=== PATIENT | female | born 1970 | race Caucasian/White ===

== ENCOUNTER 2017-08-24 17:39 | Inpatient (IN) | payer MEDICAID ==
[~2017-08-24] VITALS: Ht 160 cm; Wt 50.9 kg
[2017-08-24] MEDS ORDERED: MAGNESIUM SULFATE 2 GM, MVI, ADULT NO.1 WITH VIT K 10 ML, THIAMINE HCL 100 MG, FOLIC AC... IV ONE ×5 (19:00)
[2017-08-24] MEDS ORDERED: ONDANSETRON HCL 4 MG/2 ML VIAL IVP ONE (19:30)
[2017-08-24] MEDS ORDERED: MORPHINE SULFATE 4 MG/ML SYRINGE IVP ONE (19:30)
[2017-08-24] MEDS ORDERED: NITROGLYCERIN 2% (1 GM=INCH) PACKET TP ONE (20:45)
[2017-08-24] MEDS ORDERED: ASPIRIN 81 MG CHEWABLE TABLET PO ONE (20:45)
[2017-08-24 21:18] LABS: ANION GAP 9 mmol/L (8-16); CALCIUM, TOTAL 8.1 mg/dL (8.8-10.5); CARBON DIOXIDE 28 mmol/L (22-29); CHLORIDE 104 mmol/L (98-107); CREATININE 0.67 mg/dL (0.60-1.30); GLOMERULAR FILTR. RATE CALC > 60 mL/min (>60); GLUCOSE,RANDOM 100 mg/dL (70-110); POTASSIUM 3.4 mmol/L (3.5-5.1); SODIUM SERUM 141 mmol/L (136-145); UREA NITROGEN, BLOOD 10 mg/dL (7-18)
[2017-08-24 21:21] LABS: PROTHROMBIN TIME 10.6 SEC (9.4-11.6)
[2017-08-24 21:24] LABS: ALANINE AMINOTRANSFERASE 105 U/L (12-78); ALBUMIN 3.6 g/dL (3.4-5.0); ALKALINE PHOSPHATASE 95 U/L (46-116); ASPARTATE AMINOTRANSFERASE 126 U/L (15-37); BILIRUBIN,TOTAL 0.3 mg/dL (0.1-1.0); TOTAL PROTEIN, SERUM 7.5 g/dL (6.4-8.2)
[2017-08-24 21:25] LABS: BASOPHILS % (AUTO) 0.5 % (0.0-2.0); EOSINOPHILS % (AUTO) 0.9 % (1.0-6.0); HEMATOCRIT 41.5 % (36-46); HEMOGLOBIN 14.5 g/dL (12.0-16.0); LYMPHOCYTES % (AUTO) 42.6 % (22.0-44.0); MEAN CORPUSCULAR HGB CONC 34.9 G/dL (31.0-37.0); MEAN CORPUSCULAR VOLUME 100 fL (80-100); MONOCYTES # (AUTO) 0.4 K/uL (0.1-1.0); MONOCYTES % (AUTO) 8.3 % (2.0-9.0); NEUTROPHILS # (AUTO) 2.2 K/uL (1.8-7.7); NEUTROPHILS % (AUTO) 47.7 % (40.0-70.0); PLATELET COUNT (AUTO) 226 K/uL (150-450); RED BLOOD CELL COUNT(AUTO) 4.14 MIL/uL (4.00-5.20); RED CELL DISTRIBUTION WIDTH 15.2 % (11.5-14.5)
[2017-08-24 21:50] LABS: B-TYPE NATRIURETIC PEPTIDE 18 pg/mL (0-100)
[2017-08-24] MEDS ORDERED: LORazepam 2 MG/ML VIAL IVP PRN (22:15)
[2017-08-24] MEDS ORDERED: MAGNESIUM OXIDE 400 MG TABLET PO PRN (22:15)
[2017-08-24] MEDS ORDERED: OxyCODONE HCL/ACETAMINOPHEN 5-325 MG TABLET PO PRN (22:15)
[2017-08-24] MEDS ORDERED: MAGNESIUM SULFATE 2 GM in DEXTROSE 5%-WATER 50 ML IV PRN (22:15)
[2017-08-24] MEDS ORDERED: POTASSIUM CHLORIDE 20 MEQ ER TABLET PO PRN (22:15)
[2017-08-24] MEDS ORDERED: MAGNESIUM HYDROXIDE SUSPENSION 30 ML UDCUP PO PRN (22:15)
[2017-08-24] MEDS ORDERED: ACETAMINOPHEN 325 MG TABLET PO PRN (22:15)
[2017-08-24] MEDS ORDERED: POTASSIUM CHL 10 MEQ/WATER 50 ML IV PRN (22:15)
[2017-08-24] MEDS ORDERED: MAGNESIUM SULFATE 4 GM/WATER 100 ML IV PRN (22:15)
[2017-08-24] MEDS: ChlordiazePOXIDE HCL 25 MG CAPSULE PO SCH (23:19)
[2017-08-25] VITALS (8 sets, daily range): BP systolic 122–191; BP diastolic 78–143
[2017-08-25] MEDS: MORPHINE SULFATE 2 MG/ML SYRINGE IVP PRN ×5 (02:19→20:00)
[2017-08-25] MEDS: NICOTINE 21 MG/24 HOUR PATCH TD SCH ×2 (05:38→09:00)
[2017-08-25] MEDS ORDERED: INFLUENZA VIRUS VACCINE QVS 2017-18 (3YR+)/PF 60 MCG/0.5 ML SYRINGE IM ONE (07:45)
[2017-08-25] MEDS ORDERED: PNEUMOCOCCAL VACCINE POLYVALENT 0.5 ML VIAL [PPSV23] IM ONE (07:45)
[2017-08-25] MEDS: DOCUSATE SODIUM 100 MG CAPSULE PO SCH ×2 (08:34→19:58)
[2017-08-25] MEDS: ASPIRIN 81 MG CHEWABLE TABLET PO SCH (08:35)
[2017-08-25] MEDS: MULTIVITAMINS WITH MINERALS, THERAPEUTIC TABLET PO SCH (08:35)
[2017-08-25] MEDS: ChlordiazePOXIDE HCL 25 MG CAPSULE PO SCH ×3 (08:35→23:51)
[2017-08-25] MEDS: PANTOPRAZOLE SODIUM 40 MG DR TABLET PO SCH (08:36)
[2017-08-25] MEDS ORDERED: METO25 PO (10:14)
[2017-08-25] MEDS ORDERED: LISI-661 PO (10:14)
[2017-08-25] MEDS ORDERED: CloNIDine HCL 0.1 MG TABLET PO ONE (10:15)
[2017-08-25] MEDS ORDERED: CloNIDine HCL 0.1 MG TABLET PO PRN (10:45)
[2017-08-25] MEDS: ONDANSETRON HCL 4 MG/2 ML VIAL IVP PRN (11:35)
[2017-08-25] MEDS: METOPROLOL TARTRATE 25 MG TABLET PO SCH (12:30)
[2017-08-25] MEDS: LISINOPRIL 10 MG TABLET PO SCH (12:30)
[2017-08-26 03:24] VITALS: BP 136/85
[2017-08-26] MEDS: MORPHINE SULFATE 2 MG/ML SYRINGE IVP PRN ×3 (03:25→12:23)
[2017-08-26 07:17] VITALS: BP 105/72
[2017-08-26] MEDS: NICOTINE 21 MG/24 HOUR PATCH TD SCH (07:30)
[2017-08-26] MEDS: LISINOPRIL 10 MG TABLET PO SCH (07:32)
[2017-08-26] MEDS: ASPIRIN 81 MG CHEWABLE TABLET PO SCH (07:32)
[2017-08-26] MEDS: ChlordiazePOXIDE HCL 25 MG CAPSULE PO SCH ×2 (07:32→16:00)
[2017-08-26] MEDS: DOCUSATE SODIUM 100 MG CAPSULE PO SCH (07:32)
[2017-08-26] MEDS: METOPROLOL TARTRATE 25 MG TABLET PO SCH (07:32)
[2017-08-26] MEDS: MULTIVITAMINS WITH MINERALS, THERAPEUTIC TABLET PO SCH (07:32)
[2017-08-26] MEDS: PANTOPRAZOLE SODIUM 40 MG DR TABLET PO SCH (07:32)
[2017-08-26] MEDS: ONDANSETRON HCL 4 MG/2 ML VIAL IVP PRN (07:33)
[2017-08-26 07:55] LABS: BASOPHILS % (AUTO) 0.7 % (0.0-2.0); EOSINOPHILS % (AUTO) 2.1 % (1.0-6.0); HEMATOCRIT 41.1 % (36-46); HEMOGLOBIN 14.2 g/dL (12.0-16.0); LYMPHOCYTES # (AUTO) 1.4 K/uL (1.0-4.8); LYMPHOCYTES % (AUTO) 33.4 % (22.0-44.0); MEAN CORPUSCULAR HEMOGLOBIN 34.8 pg (26.0-34.0); MEAN CORPUSCULAR HGB CONC 34.5 G/dL (31.0-37.0); MEAN CORPUSCULAR VOLUME 101 fL (80-100); MONOCYTES # (AUTO) 0.7 K/uL (0.1-1.0); MONOCYTES % (AUTO) 15.8 % (2.0-9.0); PLATELET COUNT (AUTO) 211 K/uL (150-450); RED BLOOD CELL COUNT(AUTO) 4.08 MIL/uL (4.00-5.20); RED CELL DISTRIBUTION WIDTH 14.5 % (11.5-14.5)
[2017-08-26 08:21] LABS: ALANINE AMINOTRANSFERASE 88 U/L (12-78); ALBUMIN 3.2 g/dL (3.4-5.0); ALKALINE PHOSPHATASE 86 U/L (46-116); ANION GAP 5 mmol/L (8-16); ASPARTATE AMINOTRANSFERASE 80 U/L (15-37); BILIRUBIN,TOTAL 0.6 mg/dL (0.1-1.0); CALCIUM, TOTAL 9.2 mg/dL (8.8-10.5); CARBON DIOXIDE 28 mmol/L (22-29); CHLORIDE 99 mmol/L (98-107); CREATININE 0.83 mg/dL (0.60-1.30); GLOMERULAR FILTR. RATE CALC > 60 mL/min (>60); GLUCOSE,RANDOM 102 mg/dL (70-110); POTASSIUM 4.4 mmol/L (3.5-5.1); SODIUM SERUM 132 mmol/L (136-145); TOTAL PROTEIN, SERUM 6.9 g/dL (6.4-8.2); UREA NITROGEN, BLOOD 13 mg/dL (7-18)
[2017-08-26] MEDS ORDERED: METOPROLOL TARTRATE 25 MG TABLET PO SCH (09:00)
[2017-08-26] MEDS ORDERED: LISINOPRIL 10 MG TABLET PO SCH (09:00)
[2017-08-26 09:11] LABS: PLATELET MORPHOLOGY COMMENT NORMAL
[2017-08-26 10:57] VITALS: BP 108/76
[2017-08-26] MEDS ORDERED: LIB5 PO (15:03)
[2017-08-26] MEDS ORDERED: OMEP20 PO (15:03)
[2017-08-26 15:33] VITALS: BP 125/72
== END 2017-08-26 15:50 | disposition home or self-care (01) | DRG 241 ==
LOC: EMS 17:41 → AHU 08-25 00:47 → 5N 08-25 10:45
PROVIDERS: ADMIT Internal Medicine; ATTEND Internal Medicine
DX: K29.70 Gastritis, unspecified, without bleeding (principal); I11.0 Hypertensive heart disease with heart failure; I50.9 Heart failure, unspecified; R56.9 Unspecified convulsions; K21.9 Gastro-esophageal reflux disease without esophagitis; F10.239 Alcohol dependence with withdrawal, unspecified; E87.6 Hypokalemia; I25.10 Atherosclerotic heart disease of native coronary artery without angina pectoris; J44.9 Chronic obstructive pulmonary disease, unspecified; F31.9 Bipolar disorder, unspecified; F17.200 Nicotine dependence, unspecified, uncomplicated; I45.10 Unspecified right bundle-branch block; Y90.8 Blood alcohol level of 240 mg/100 ml or more; Z95.1 Presence of aortocoronary bypass graft; Z91.19 Patient's noncompliance with other medical treatment and regimen; Z83.3 Family history of diabetes mellitus; Z82.49 Family history of ischemic heart disease and other diseases of the circulatory system; Z87.440 Personal history of urinary (tract) infections; Z59.0 Homelessness
CPT/HCPCS: 83735; 90471; 93005; 93306; 96365; 96366; 96375; 99285; 99406; G0480; J2060; J2270; J2405; J3411; J3475; J3490; J7030

== ENCOUNTER 2019-09-12 11:42 | Inpatient (IN) | payer MEDICAID ==
[~2019-09-12] VITALS: Ht 160 cm; Wt 55.0 kg
[~2019-09-12 11:42] MED LIST: LIB5 PO; LISI-661 PO; METO25 PO; OMEP20 PO
[2019-09-12] MEDS ORDERED: SODIUM CHLORIDE 0.9% 1,000 ML IV ONE (12:30)
[2019-09-12] MEDS ORDERED: ONDANSETRON HCL 4 MG/2 ML VIAL IVP ONE (12:30)
[2019-09-12] MEDS ORDERED: DIAZEPAM 5 MG/ML 2 ML SYRINGE IVP ONE (12:30)
[2019-09-12 13:17] LABS: BASOPHILS % (AUTO) 1.2 % (0.0-2.0); EOSINOPHILS % (AUTO) 0.9 % (1.0-6.0); HEMATOCRIT 39.4 % (36-46); LYMPHOCYTES % (AUTO) 22.8 % (22.0-44.0); MEAN CORPUSCULAR HEMOGLOBIN 28.5 pg (26.0-34.0); MEAN CORPUSCULAR HGB CONC 32.9 G/dL (31.0-37.0); MEAN CORPUSCULAR VOLUME 87 fL (80-100); MONOCYTES # (AUTO) 0.6 K/uL (0.1-1.0); MONOCYTES % (AUTO) 6.5 % (2.0-9.0); NEUTROPHILS # (AUTO) 5.9 K/uL (1.8-7.7); NEUTROPHILS % (AUTO) 68.6 % (40.0-70.0); PLATELET COUNT (AUTO) 415 K/uL (150-450); RED BLOOD CELL COUNT(AUTO) 4.55 MIL/uL (4.00-5.20); RED CELL DISTRIBUTION WIDTH 17.5 % (11.5-14.5)
[2019-09-12 13:29] LABS: ANION GAP 8 mmol/L (8-16); CALCIUM, TOTAL 9.9 mg/dL (8.8-10.5); CARBON DIOXIDE 28 mmol/L (22-29); CHLORIDE 98 mmol/L (98-107); CREATININE 0.71 mg/dL (0.60-1.30); GLOMERULAR FILTR. RATE CALC > 60 mL/min (>60); GLUCOSE,RANDOM 100 mg/dL (70-110); POTASSIUM 3.5 mmol/L (3.5-5.1); SODIUM SERUM 134 mmol/L (136-145); UREA NITROGEN, BLOOD 19 mg/dL (7-18)
[2019-09-12 13:35] LABS: ALANINE AMINOTRANSFERASE 36 U/L (12-78); ALBUMIN 3.8 g/dL (3.4-5.0); ALKALINE PHOSPHATASE 129 U/L (46-116); ASPARTATE AMINOTRANSFERASE 37 U/L (15-37); BILIRUBIN,TOTAL 0.5 mg/dL (0.1-1.0); TOTAL PROTEIN, SERUM 8.9 g/dL (6.4-8.2)
[2019-09-12] MEDS ORDERED: ONDANSETRON HCL 4 MG/2 ML VIAL IVP PRN ×2 (15:00→23:00)
[2019-09-12] MEDS ORDERED: ACETAMINOPHEN 325 MG TABLET PO PRN ×2 (15:00→23:00)
[2019-09-12] MEDS ORDERED: DIAZEPAM 5 MG/ML 2 ML SYRINGE IVP PRN (15:00)
[2019-09-12 18:43] VITALS: BP 150/102
[2019-09-12 19:35] VITALS: BP 155/98
[2019-09-12] MEDS ORDERED: ChlordiazePOXIDE HCL 25 MG CAPSULE PO PRN (23:00)
[2019-09-12] MEDS ORDERED: 0.9% SODIUM CHLORIDE 10 ML SYRINGE IVP PRN (23:00)
[2019-09-12] MEDS ORDERED: MAGNESIUM HYDROXIDE SUSPENSION 30 ML UDCUP PO PRN (23:00)
[2019-09-12 23:20] VITALS: BP 161/106
[2019-09-12] MEDS: DOCUSATE SODIUM 100 MG CAPSULE PO SCH (23:36)
[2019-09-12] MEDS: SODIUM CHLORIDE 0.9% 1,000 ML IV SCH (23:37)
[2019-09-13 04:18] VITALS: BP 168/103
[2019-09-13] MEDS ORDERED: ChlordiazePOXIDE HCL 25 MG CAPSULE PO PRN (07:00)
[2019-09-13] MEDS: ChlordiazePOXIDE HCL 25 MG CAPSULE PO SCH ×4 (08:24→19:48)
[2019-09-13] MEDS: DOCUSATE SODIUM 100 MG CAPSULE PO SCH ×2 (08:24→19:48)
[2019-09-13] MEDS: OMEPRAZOLE 20 MG CAPSULE PO SCH (08:25)
[2019-09-13] MEDS: FOLIC ACID 1 MG TABLET PO SCH (08:25)
[2019-09-13] MEDS: LISINOPRIL 10 MG TABLET PO SCH (08:25)
[2019-09-13] MEDS: MULTIVITAMINS, THERAPEUTIC TABLET PO SCH (08:25)
[2019-09-13] MEDS: THIAMINE HCL 100 MG TABLET PO SCH (08:25)
[2019-09-13] MEDS: METOPROLOL TARTRATE 25 MG TABLET PO SCH (08:25)
[2019-09-13 09:50] LABS: BASOPHILS % (AUTO) 0.9 % (0.0-2.0); EOSINOPHILS % (AUTO) 3.4 % (1.0-6.0); HEMATOCRIT 38.4 % (36-46); HEMOGLOBIN 12.9 g/dL (12.0-16.0); LYMPHOCYTES # (AUTO) 1.6 K/uL (1.0-4.8); LYMPHOCYTES % (AUTO) 25.6 % (22.0-44.0); MEAN CORPUSCULAR HEMOGLOBIN 29.2 pg (26.0-34.0); MEAN CORPUSCULAR HGB CONC 33.6 G/dL (31.0-37.0); MEAN CORPUSCULAR VOLUME 87 fL (80-100); MONOCYTES # (AUTO) 0.4 K/uL (0.1-1.0); MONOCYTES % (AUTO) 7.1 % (2.0-9.0); NEUTROPHILS # (AUTO) 3.9 K/uL (1.8-7.7); PLATELET COUNT (AUTO) 404 K/uL (150-450); RED BLOOD CELL COUNT(AUTO) 4.41 MIL/uL (4.00-5.20); RED CELL DISTRIBUTION WIDTH 16.9 % (11.5-14.5)
[2019-09-13 10:04] LABS: ANION GAP 7 mmol/L (8-16); CALCIUM, TOTAL 9.3 mg/dL (8.8-10.5); CARBON DIOXIDE 29 mmol/L (22-29); CHLORIDE 100 mmol/L (98-107); CREATININE 0.81 mg/dL (0.60-1.30); GLOMERULAR FILTR. RATE CALC > 60 mL/min (>60); GLUCOSE,RANDOM 121 mg/dL (70-110); POTASSIUM 4.1 mmol/L (3.5-5.1); SODIUM SERUM 136 mmol/L (136-145); UREA NITROGEN, BLOOD 20 mg/dL (7-18)
[2019-09-13 10:58] VITALS: BP 111/76
[2019-09-13] MEDS: SODIUM CHLORIDE 0.9% 1,000 ML IV SCH ×2 (13:13→19:00)
[2019-09-13 17:11] VITALS: BP 141/95
[2019-09-13 19:44] VITALS: BP 119/80
[2019-09-14 00:03] VITALS: BP 125/84
[2019-09-14 04:28] VITALS: BP 135/83
[2019-09-14] MEDS: OxyCODONE HCL/ACETAMINOPHEN 5-325 MG TABLET PO PRN ×2 (06:46→12:28)
[2019-09-14 07:40] VITALS: BP 147/87
[2019-09-14] MEDS: ChlordiazePOXIDE HCL 25 MG CAPSULE PO SCH ×4 (08:15→21:14)
[2019-09-14] MEDS: FOLIC ACID 1 MG TABLET PO SCH (08:16)
[2019-09-14] MEDS: MULTIVITAMINS, THERAPEUTIC TABLET PO SCH (08:16)
[2019-09-14] MEDS: DOCUSATE SODIUM 100 MG CAPSULE PO SCH ×2 (08:16→21:14)
[2019-09-14] MEDS: LISINOPRIL 10 MG TABLET PO SCH (08:16)
[2019-09-14] MEDS: OMEPRAZOLE 20 MG CAPSULE PO SCH (08:16)
[2019-09-14] MEDS: METOPROLOL TARTRATE 25 MG TABLET PO SCH (08:16)
[2019-09-14] MEDS: THIAMINE HCL 100 MG TABLET PO SCH (08:16)
[2019-09-14 12:08] VITALS: BP 129/86
[2019-09-14] MEDS: SODIUM CHLORIDE 0.9% 1,000 ML IV SCH ×2 (12:27→15:00)
[2019-09-14 15:08] VITALS: BP 108/65
[2019-09-14] MEDS: NICOTINE 14 MG/24 HOUR PATCH TD SCH (18:12)
[2019-09-14 19:27] VITALS: BP 124/70
[2019-09-14] MEDS: MIRTAZAPINE 15 MG TABLET PO SCH (21:14)
[2019-09-15 00:12] VITALS: BP 144/76
[2019-09-15 01:45] VITALS: BP 93/52
[2019-09-15] MEDS: SODIUM CHLORIDE 0.9% 1,000 ML IV SCH ×2 (02:40→10:53)
[2019-09-15 05:10] VITALS: BP 155/107
[2019-09-15] MEDS ORDERED: ChlordiazePOXIDE HCL 10 MG CAPSULE PO PRN (07:00)
[2019-09-15 07:57] LABS: ANION GAP 6 mmol/L (8-16); CARBON DIOXIDE 25 mmol/L (22-29); CHLORIDE 105 mmol/L (98-107); CREATININE 0.77 mg/dL (0.60-1.30); GLOMERULAR FILTR. RATE CALC > 60 mL/min (>60); GLUCOSE,RANDOM 121 mg/dL (70-110); POTASSIUM 4.5 mmol/L (3.5-5.1); SODIUM SERUM 136 mmol/L (136-145); UREA NITROGEN, BLOOD 21 mg/dL (7-18)
[2019-09-15 08:08] VITALS: BP 147/99
[2019-09-15] MEDS: NICOTINE 14 MG/24 HOUR PATCH TD SCH (08:21)
[2019-09-15] MEDS: OMEPRAZOLE 20 MG CAPSULE PO SCH (08:21)
[2019-09-15] MEDS: METOPROLOL TARTRATE 25 MG TABLET PO SCH (08:21)
[2019-09-15] MEDS: LISINOPRIL 10 MG TABLET PO SCH (08:21)
[2019-09-15] MEDS: THIAMINE HCL 100 MG TABLET PO SCH (08:21)
[2019-09-15] MEDS: FOLIC ACID 1 MG TABLET PO SCH (08:21)
[2019-09-15] MEDS: ARIPiprazole 5 MG TABLET PO SCH (08:21)
[2019-09-15] MEDS: DOCUSATE SODIUM 100 MG CAPSULE PO SCH ×2 (08:21→20:45)
[2019-09-15] MEDS: MULTIVITAMINS, THERAPEUTIC TABLET PO SCH (08:21)
[2019-09-15] MEDS: ChlordiazePOXIDE HCL 10 MG CAPSULE PO SCH ×4 (08:21→20:45)
[2019-09-15] MEDS ORDERED: NICOTINE 14 MG/24 HOUR PATCH TD SCH (09:00)
[2019-09-15] MEDS: OxyCODONE HCL/ACETAMINOPHEN 5-325 MG TABLET PO PRN (12:21)
[2019-09-15 16:42] VITALS: BP 137/93
[2019-09-15 19:53] VITALS: BP 154/86
[2019-09-15] MEDS: MIRTAZAPINE 15 MG TABLET PO SCH (20:45)
[2019-09-16] VITALS (7 sets, daily range): BP systolic 130–158; BP diastolic 64–102
[2019-09-16] MEDS: OxyCODONE HCL/ACETAMINOPHEN 5-325 MG TABLET PO PRN ×4 (00:38→23:20)
[2019-09-16 07:01] LABS: ANION GAP 5 mmol/L (8-16); CALCIUM, TOTAL 9.2 mg/dL (8.8-10.5); CARBON DIOXIDE 28 mmol/L (22-29); CHLORIDE 99 mmol/L (98-107); CREATININE 0.64 mg/dL (0.60-1.30); GLOMERULAR FILTR. RATE CALC > 60 mL/min (>60); GLUCOSE,RANDOM 132 mg/dL (70-110); SODIUM SERUM 132 mmol/L (136-145); UREA NITROGEN, BLOOD 16 mg/dL (7-18)
[2019-09-16] MEDS: METOPROLOL TARTRATE 25 MG TABLET PO SCH (09:06)
[2019-09-16] MEDS: MULTIVITAMINS, THERAPEUTIC TABLET PO SCH (09:06)
[2019-09-16] MEDS: LISINOPRIL 10 MG TABLET PO SCH (09:06)
[2019-09-16] MEDS: OMEPRAZOLE 20 MG CAPSULE PO SCH (09:06)
[2019-09-16] MEDS: THIAMINE HCL 100 MG TABLET PO SCH (09:06)
[2019-09-16] MEDS: FOLIC ACID 1 MG TABLET PO SCH (09:06)
[2019-09-16] MEDS: DOCUSATE SODIUM 100 MG CAPSULE PO SCH ×2 (09:06→22:02)
[2019-09-16] MEDS: ARIPiprazole 5 MG TABLET PO SCH (09:07)
[2019-09-16] MEDS: NICOTINE 14 MG/24 HOUR PATCH TD SCH (09:07)
[2019-09-16] MEDS: ChlordiazePOXIDE HCL 10 MG CAPSULE PO PRN ×3 (14:44→22:02)
[2019-09-16] MEDS: MIRTAZAPINE 15 MG TABLET PO SCH (22:02)
[2019-09-17 05:15] VITALS: BP 135/104
[2019-09-17 05:25] LABS: BASOPHILS % (AUTO) 1.6 % (0.0-2.0); EOSINOPHILS % (AUTO) 4.9 % (1.0-6.0); HEMATOCRIT 35.6 % (36-46); HEMOGLOBIN 12.2 g/dL (12.0-16.0); LYMPHOCYTES # (AUTO) 2.4 K/uL (1.0-4.8); LYMPHOCYTES % (AUTO) 37.8 % (22.0-44.0); MEAN CORPUSCULAR HEMOGLOBIN 29.8 pg (26.0-34.0); MEAN CORPUSCULAR HGB CONC 34.2 G/dL (31.0-37.0); MEAN CORPUSCULAR VOLUME 87 fL (80-100); MONOCYTES # (AUTO) 0.8 K/uL (0.1-1.0); NEUTROPHILS # (AUTO) 2.8 K/uL (1.8-7.7); NEUTROPHILS % (AUTO) 43.7 % (40.0-70.0); PLATELET COUNT (AUTO) 257 K/uL (150-450); RED BLOOD CELL COUNT(AUTO) 4.08 MIL/uL (4.00-5.20); RED CELL DISTRIBUTION WIDTH 17.1 % (11.5-14.5)
[2019-09-17 05:33] LABS: ANION GAP 5 mmol/L (8-16); CALCIUM, TOTAL 9.4 mg/dL (8.8-10.5); CARBON DIOXIDE 30 mmol/L (22-29); CHLORIDE 100 mmol/L (98-107); CREATININE 0.91 mg/dL (0.60-1.30); GLOMERULAR FILTR. RATE CALC > 60 mL/min (>60); GLUCOSE,RANDOM 121 mg/dL (70-110); POTASSIUM 4.4 mmol/L (3.5-5.1); SODIUM SERUM 135 mmol/L (136-145); UREA NITROGEN, BLOOD 19 mg/dL (7-18)
[2019-09-17] MEDS: ChlordiazePOXIDE HCL 10 MG CAPSULE PO PRN (06:21)
[2019-09-17] MEDS: MULTIVITAMINS, THERAPEUTIC TABLET PO SCH (07:38)
[2019-09-17] MEDS: OMEPRAZOLE 20 MG CAPSULE PO SCH (07:38)
[2019-09-17] MEDS: OxyCODONE HCL/ACETAMINOPHEN 5-325 MG TABLET PO PRN (07:38)
[2019-09-17] MEDS: METOPROLOL TARTRATE 25 MG TABLET PO SCH (07:38)
[2019-09-17] MEDS: THIAMINE HCL 100 MG TABLET PO SCH (07:38)
[2019-09-17] MEDS: DOCUSATE SODIUM 100 MG CAPSULE PO SCH (07:39)
[2019-09-17] MEDS: LISINOPRIL 10 MG TABLET PO SCH (07:39)
[2019-09-17] MEDS: FOLIC ACID 1 MG TABLET PO SCH (07:39)
[2019-09-17] MEDS: ARIPiprazole 5 MG TABLET PO SCH (07:52)
[2019-09-17] MEDS: NICOTINE 14 MG/24 HOUR PATCH TD SCH (07:52)
[2019-09-17 11:16] VITALS: BP 105/72
[2019-09-17 15:05] VITALS: BP 147/97
== END 2019-09-17 18:05 | DRG 775 ==
LOC: EMS 11:43 → UNDOADMIN 18:17 → 5N 18:17
PROVIDERS: ADMIT Internal Medicine; ATTEND Internal Medicine
DX: F10.239 Alcohol dependence with withdrawal, unspecified (principal); F25.1 Schizoaffective disorder, depressive type; R45.851 Suicidal ideations; I11.0 Hypertensive heart disease with heart failure; I50.9 Heart failure, unspecified; E87.1 Hypo-osmolality and hyponatremia; K21.9 Gastro-esophageal reflux disease without esophagitis; F31.9 Bipolar disorder, unspecified; Y90.9 Presence of alcohol in blood, level not specified; F41.9 Anxiety disorder, unspecified; J44.9 Chronic obstructive pulmonary disease, unspecified; F17.210 Nicotine dependence, cigarettes, uncomplicated; F19.90 Other psychoactive substance use, unspecified, uncomplicated; Z91.5 Personal history of self-harm; Z87.440 Personal history of urinary (tract) infections; Z95.1 Presence of aortocoronary bypass graft; Z59.0 Homelessness; Z88.8 Allergy status to other drugs, medicaments and biological substances; Z79.899 Other long term (current) drug therapy; Z91.19 Patient's noncompliance with other medical treatment and regimen
CPT/HCPCS: 83036; 93005; 96374; 96375; 99291; G0480; J2405; J7030

== ENCOUNTER 2019-09-17 14:33 | Inpatient (IN) | payer MEDICAID ==
[~2019-09-17] VITALS: Ht 161.9 cm; Wt 55.7 kg
[2019-09-17] MEDS ORDERED: ZOLPIDEM TARTRATE 10 MG TABLET PO PRN (18:30)
[2019-09-17] MEDS ORDERED: HALOPERIDOL 5 MG TABLET PO PRN (18:30)
[2019-09-17] MEDS ORDERED: INFLUENZA VIRUS VACCINE QVS 2019-20 (3YR+)/PF 60 MCG/0.5 ML SYRINGE IM ONE (20:45)
[2019-09-17] MEDS ORDERED: MIRTAZAPINE 15 MG TABLET PO SCH (21:00)
[2019-09-17 22:10] VITALS: BP 155/84
[2019-09-18 00:43] VITALS: BP 121/82
[2019-09-18] MEDS ORDERED: -PHARMACY VACCINE NOTE- MISC ONE (07:00)
[2019-09-18 08:35] VITALS: BP 118/68
[2019-09-18] MEDS: FOLIC ACID 1 MG TABLET PO SCH (08:53)
[2019-09-18] MEDS: OMEPRAZOLE 20 MG CAPSULE PO SCH (08:53)
[2019-09-18] MEDS: METOPROLOL TARTRATE 25 MG TABLET PO SCH (08:53)
[2019-09-18] MEDS: LISINOPRIL 10 MG TABLET PO SCH (08:53)
[2019-09-18] MEDS: THIAMINE HCL 100 MG TABLET PO SCH (08:53)
[2019-09-18] MEDS: DOCUSATE SODIUM 100 MG CAPSULE PO SCH ×2 (08:53→16:11)
[2019-09-18] MEDS: NICOTINE 14 MG/24 HOUR PATCH TD SCH (08:53)
[2019-09-18] MEDS: MULTIVITAMINS, THERAPEUTIC TABLET PO SCH (08:53)
[2019-09-18] MEDS ORDERED: ARIPiprazole 5 MG TABLET PO SCH (09:00)
[2019-09-18] MEDS: LORazepam 2 MG TABLET PO PRN ×2 (09:35→15:39)
[2019-09-18] MEDS ORDERED: PETROLATUM,WHITE 28 GM JELLY TP PRN (10:15)
[2019-09-18] MEDS ORDERED: MAG HYDROX/AL HYDROX/SIMETH ES 30 ML SUSPENSION UDCUP PO PRN (10:15)
[2019-09-18] MEDS ORDERED: DOCUSATE SODIUM 100 MG CAPSULE PO PRN (10:15)
[2019-09-18] MEDS ORDERED: ONDANSETRON HCL 4 MG TABLET PO PRN (10:15)
[2019-09-18] MEDS ORDERED: ACETAMINOPHEN 325 MG TABLET PO PRN (10:15)
[2019-09-18] MEDS ORDERED: IBUPROFEN 400 MG TABLET PO PRN (10:15)
[2019-09-18] MEDS ORDERED: ALBUTEROL SULFATE HFA 90 MCG/PUFF 8 GM INHALER IH PRN (10:15)
[2019-09-18] MEDS ORDERED: CloNIDine HCL 0.1 MG TABLET PO PRN (10:15)
[2019-09-18] MEDS ORDERED: MAGNESIUM HYDROXIDE SUSPENSION 30 ML UDCUP PO PRN (10:15)
[2019-09-18] MEDS ORDERED: LOPERAMIDE HCL 2 MG CAPSULE PO PRN (10:15)
[2019-09-18] MEDS ORDERED: NICOTINE 14 MG/24 HOUR PATCH TD PRN (10:15)
[2019-09-18] MEDS ORDERED: GuaiFENesin/D-METHORPHAN [SUGAR-FREE] 200-20MG/10 ML SYRUP UDCUP PO PRN (10:15)
[2019-09-18 16:39] VITALS: BP 139/95
[2019-09-18] MEDS: MIRTAZAPINE 15 MG TABLET PO SCH (20:20)
[2019-09-19 00:25] VITALS: BP 137/92
[2019-09-19 07:55] LABS: CHOL/HDL RATIO 6.5 (3.9-5.7)
[2019-09-19 08:24] VITALS: BP 151/97
[2019-09-19] MEDS: METOPROLOL TARTRATE 25 MG TABLET PO SCH (08:39)
[2019-09-19] MEDS: OMEPRAZOLE 20 MG CAPSULE PO SCH (08:39)
[2019-09-19] MEDS: THIAMINE HCL 100 MG TABLET PO SCH (08:39)
[2019-09-19] MEDS: LISINOPRIL 10 MG TABLET PO SCH (08:39)
[2019-09-19] MEDS: NICOTINE 14 MG/24 HOUR PATCH TD SCH (08:39)
[2019-09-19] MEDS: ARIPiprazole 10 MG TABLET PO SCH (08:39)
[2019-09-19] MEDS: FOLIC ACID 1 MG TABLET PO SCH (08:39)
[2019-09-19] MEDS: MULTIVITAMINS, THERAPEUTIC TABLET PO SCH (08:39)
[2019-09-19] MEDS: DOCUSATE SODIUM 100 MG CAPSULE PO SCH ×2 (08:39→17:00)
[2019-09-19 10:00] VITALS: BP 139/94
[2019-09-19] MEDS: LORazepam 2 MG TABLET PO PRN (10:49)
[2019-09-19 16:25] VITALS: BP 127/89
[2019-09-19] MEDS: MIRTAZAPINE 15 MG TABLET PO SCH (21:54)
[2019-09-20 06:54] VITALS: BP 149/95
[2019-09-20] MEDS: DOCUSATE SODIUM 100 MG CAPSULE PO SCH ×2 (08:43→16:51)
[2019-09-20] MEDS: OMEPRAZOLE 20 MG CAPSULE PO SCH (08:44)
[2019-09-20] MEDS: ARIPiprazole 10 MG TABLET PO SCH (08:44)
[2019-09-20] MEDS: NICOTINE 14 MG/24 HOUR PATCH TD SCH (08:44)
[2019-09-20] MEDS: THIAMINE HCL 100 MG TABLET PO SCH (08:44)
[2019-09-20] MEDS: METOPROLOL TARTRATE 25 MG TABLET PO SCH (08:44)
[2019-09-20] MEDS: FOLIC ACID 1 MG TABLET PO SCH (08:44)
[2019-09-20] MEDS: LISINOPRIL 10 MG TABLET PO SCH (08:44)
[2019-09-20] MEDS: MULTIVITAMINS, THERAPEUTIC TABLET PO SCH (08:44)
[2019-09-20] MEDS: LORazepam 2 MG TABLET PO PRN ×2 (08:46→14:32)
[2019-09-20 09:19] VITALS: BP 138/88
[2019-09-20 16:09] VITALS: BP 135/96
[2019-09-20 20:08] VITALS: BP 140/90
[2019-09-20] MEDS: MIRTAZAPINE 15 MG TABLET PO SCH (20:08)
[2019-09-21 00:03] VITALS: BP 138/96
[2019-09-21] MEDS: LORazepam 2 MG TABLET PO PRN ×3 (00:09→19:07)
[2019-09-21 08:37] VITALS: BP 140/68
[2019-09-21] MEDS: METOPROLOL TARTRATE 25 MG TABLET PO SCH (08:39)
[2019-09-21] MEDS: MULTIVITAMINS, THERAPEUTIC TABLET PO SCH (08:39)
[2019-09-21] MEDS: ARIPiprazole 10 MG TABLET PO SCH (08:39)
[2019-09-21] MEDS: LISINOPRIL 10 MG TABLET PO SCH (08:39)
[2019-09-21] MEDS: DOCUSATE SODIUM 100 MG CAPSULE PO SCH ×2 (08:39→17:00)
[2019-09-21] MEDS: FOLIC ACID 1 MG TABLET PO SCH (08:39)
[2019-09-21] MEDS: OMEPRAZOLE 20 MG CAPSULE PO SCH (08:39)
[2019-09-21] MEDS: THIAMINE HCL 100 MG TABLET PO SCH (08:39)
[2019-09-21] MEDS: NICOTINE 14 MG/24 HOUR PATCH TD SCH (08:40)
[2019-09-21 19:22] VITALS: BP 132/87
[2019-09-21] MEDS: MIRTAZAPINE 15 MG TABLET PO SCH (20:47)
[2019-09-22 03:57] VITALS: BP 133/83
[2019-09-22] MEDS: LISINOPRIL 10 MG TABLET PO SCH (08:44)
[2019-09-22] MEDS: DOCUSATE SODIUM 100 MG CAPSULE PO SCH (08:44)
[2019-09-22] MEDS: OMEPRAZOLE 20 MG CAPSULE PO SCH (08:44)
[2019-09-22] MEDS: MULTIVITAMINS, THERAPEUTIC TABLET PO SCH (08:44)
[2019-09-22] MEDS: THIAMINE HCL 100 MG TABLET PO SCH (08:44)
[2019-09-22] MEDS: METOPROLOL TARTRATE 25 MG TABLET PO SCH (08:44)
[2019-09-22] MEDS: FOLIC ACID 1 MG TABLET PO SCH (08:44)
[2019-09-22 08:52] VITALS: BP 129/80
[2019-09-22] MEDS ORDERED: NICOTINE 21 MG/24 HOUR PATCH TD SCH (09:00)
[2019-09-22] MEDS ORDERED: ARIPiprazole 10 MG TABLET PO SCH ×2 (09:00)
[2019-09-22] MEDS: LORazepam 2 MG TABLET PO PRN (09:54)
[2019-09-22] MEDS ORDERED: MIRT30 PO (10:12)
[2019-09-22] MEDS ORDERED: DOCU-275 PO (10:16)
[2019-09-22] MEDS ORDERED: METO25 PO (10:16)
[2019-09-22] MEDS ORDERED: MULT-1239 PO (10:16)
[2019-09-22] MEDS ORDERED: THIA100T75 PO (10:16)
[2019-09-22] MEDS ORDERED: FOLI1 PO (10:16)
[2019-09-22] MEDS ORDERED: ARIP10TA8 PO (10:16)
[2019-09-22] MEDS ORDERED: OMEP20 PO (10:16)
[2019-09-22] MEDS ORDERED: LISI-661 PO (10:16)
== END 2019-09-22 12:45 | disposition home or self-care (01) | DRG 750 ==
LOC: B2S 18:45
PROVIDERS: ADMIT Psychiatry & Neurology Psychiatry; ATTEND Psychiatry & Neurology Psychiatry
DX: F25.1 Schizoaffective disorder, depressive type (principal); G61.0 Guillain-Barre syndrome; I11.0 Hypertensive heart disease with heart failure; I50.9 Heart failure, unspecified; E11.9 Type 2 diabetes mellitus without complications; R45.851 Suicidal ideations; E78.5 Hyperlipidemia, unspecified; J44.9 Chronic obstructive pulmonary disease, unspecified; F41.9 Anxiety disorder, unspecified; F10.10 Alcohol abuse, uncomplicated; K21.9 Gastro-esophageal reflux disease without esophagitis; F19.10 Other psychoactive substance abuse, uncomplicated; K29.70 Gastritis, unspecified, without bleeding; Y90.9 Presence of alcohol in blood, level not specified; Z87.440 Personal history of urinary (tract) infections; Z91.19 Patient's noncompliance with other medical treatment and regimen; Z59.0 Homelessness; Z91.5 Personal history of self-harm; Z95.1 Presence of aortocoronary bypass graft; Z28.21 Immunization not carried out because of patient refusal
CPT/HCPCS: 87081